=== PATIENT | male | born 1945 | race Caucasian/White ===

== ENCOUNTER 2018-07-13 18:30 | Inpatient (IN) | payer MEDICARE, OTHER ==
[~2018-07-13] VITALS: Ht 185.4 cm; Wt 99.0 kg
[~2018-07-13 18:30] MED LIST: ATOR10TA87 PO; CARV-50 PO; HCTZ25T PO; OMEP-84 PO; QUIN10TA PO
[2018-07-13 19:35] LABS: BASOPHILS % (AUTO) 0.2 % (0-1); EOSINOPHILS % (AUTO) 0 % (0-6); HEMATOCRIT 46.1 % (42.0-52.0); HEMOGLOBIN 15.4 g/dl (14.0-17.9); LYMPHOCYTES # (AUTO) 0.8 X10'3 (1.1-4.8); LYMPHOCYTES % (AUTO) 5.5 % (21-51); MEAN CORPUSCULAR HEMOGLOBIN 31.1 PG (27.0-31.0); MEAN CORPUSCULAR HGB CONC 33.3 % (33.0-36.5); MEAN CORPUSCULAR VOLUME 93.4 FL (78-98); MEAN PLATELET VOLUME 7.2 FL (7.4-10.4); MONOCYTES # (AUTO) 0.4 X10'3 (0-0.9); MONOCYTES % (AUTO) 2.5 % (2-12); NEUTROPHILS # (AUTO) 13.2 X10'3 (1.8-7.7); NEUTROPHILS % (AUTO) 91.8 % (42-75); PLATELET COUNT 164 X10'3 (140-440); RED BLOOD COUNT 4.94 X10'6 (4.70-6.10); RED CELL DISTRIBUTION WIDTH 13.9 % (11.5-14.5); WHITE BLOOD COUNT 14.3 X10'3 (4.5-11.0)
[2018-07-13 19:50] LABS: ALANINE AMINOTRANSFERASE 31 U/L (12-78); ALBUMIN 4.2 G/DL (3.4-5.0); ALBUMIN/GLOBULIN RATIO 1.2 (1.1-1.5); ALKALINE PHOSPHATASE 98 IU/L (46-116); ANION GAP 14 (8-16); ASPARTATE AMINO TRANSFERASE 20 U/L (10-37); BILIRUBIN,TOTAL 3.3 MG/DL (0.1-1.0); BLOOD UREA NITROGEN 13 MG/DL (7-18); BUN/CREATININE RATIO 10.3 (5.4-32.0); CALCIUM 8.9 MG/DL (8.5-10.1); CHLORIDE 99 MMOL/L (99-107); CREATININE 1.26 MG/DL (0.60-1.10); GLUCOSE 121 MG/DL (70-104); POTASSIUM 3.5 MMOL/L (3.5-5.1); SODIUM 136 MMOL/L (135-145); TOTAL PROTEIN 7.6 G/DL (6.4-8.2); eGFR 57 ML/MIN
[2018-07-13 20:14] LABS: CLARITY,URINE CLEAR (Clear); GLUCOSE, URINE NEGATIVE (Neg); KETONES,URINE TRACE mg/dl (Neg); LEUKOCYTE ESTERASE ,URINE NEGATIVE (Neg); NITRITES, URINE NEGATIVE (Neg); OCCULT BLOOD,URINE NEGATIVE (Neg); PROTEIN,URINE TRACE mg/dl (Neg)
[2018-07-13 20:22] LABS: COLOR,URINE DARK YELLOW (Yellow); UA COLLECTION TYPE CLN CATCH MIDSTREAM
[2018-07-13 20:31] LABS: BACTERIA,URINE FEW /HPF (Neg); RBC,URINE NONE SEEN /HPF (0-2); SQUAMOUS EPITHELIAL CELL,UR FEW /LPF (FEW); TRANSITIONAL EPI CELLS,URINE FEW /HPF; WBC,URINE 0-4 /HPF (0-4)
[2018-07-13 20:32] LABS: MUCUS STRANDS MODERATE /LPF (Neg)
[2018-07-13] MEDS ORDERED: ondansetron/PF 4mg/2ml inj IV ONE (20:35)
[2018-07-13] MEDS ORDERED: normal saline 1000ML IV soln IVB ONE ×2 (20:40)
[2018-07-13 20:55] LABS: LIPASE 168 U/L (73-393)
[2018-07-13] MEDS ORDERED: temazepam 15mg capsule PO PRN (21:00)
[2018-07-13] MEDS ORDERED: iohexol 300mg/ml 100ml inj. ONE (21:52)
[2018-07-13] MEDS ORDERED: HYDR12.5 PO (22:32)
[2018-07-13] MEDS ORDERED: ALLO100T PO (22:35)
[2018-07-13] MEDS ORDERED: LACT1CAP65 PO (22:40)
[2018-07-13] MEDS ORDERED: FISH OIL PO (22:40)
[2018-07-13] MEDS ORDERED: DOXY25TA19 PO (22:48)
[2018-07-13] MEDS ORDERED: DICY10CA88 PO (22:53)
--- NOTE | 2018-07-13 23:18 | NUR ---
PT CONTINUES TO VOMIT, AIRWAY IS CLEAR, PT ABLE TO CLEAR SECRETIONS ON HIS OWN. DISCUSSED POTENTIAL NEED FOR NG TUBE PT DOESN'T THINK HE WILL NEED ONE DUE TO BEING ABLE TO VOMIT WITHOUT COMPLICATION.
[2018-07-13] MEDS ORDERED: dextrose 5%-1/2 normal saline 1,000 ML IV SCH (23:46)
[2018-07-13] MEDS ORDERED: magnesium hydroxide 30ml (MOM) UD suspension PO PRN (23:50)
[2018-07-13] MEDS ORDERED: HYDROmorphone 1 mg/ml syringe IV PRN (23:50)
[2018-07-13] MEDS ORDERED: bisacodyl 10mg suppository rectal RC PRN (23:50)
[2018-07-13] MEDS ORDERED: hydrALAZINE 20mg/ml inj. IV PRN (23:50)
[2018-07-13] MEDS ORDERED: acetaminophen 325mg tablet PO PRN ×2 (23:50)
[2018-07-13] MEDS ORDERED: morphine 4 MG/ML inj SYRINge IV PRN (23:50)
[2018-07-13] MEDS ORDERED: HYDROcodone/acetaminophen 10/325mg tab PO PRN (23:50)
[2018-07-13] MEDS ORDERED: metoclopramide 5 mg/ml inj IV PRN (23:50)
[2018-07-13] MEDS ORDERED: diphenhydrAMINE 25mg capsule PO PRN (23:50)
[2018-07-13] MEDS ORDERED: diphenhydrAMINE 50 mg/ml inj IV PRN (23:50)
[2018-07-13] MEDS ORDERED: acetaminophen 650mg rectal suppository RC PRN (23:50)
[2018-07-13] MEDS ORDERED: mag hydrox/Alum hydrox/simeth 30ml oral suspension PO PRN (23:50)
[2018-07-13] MEDS ORDERED: ondansetron/PF 4mg/2ml inj IV PRN (23:50)
[2018-07-13] MEDS ORDERED: sodium polystyrene sulfonate ENEMA 30gm/120ml RC ONE (23:55)
[2018-07-13] MEDS ORDERED: mineral oil 133ml enema RC PRN (23:55)
[2018-07-14 00:40] LABS: MAGNESIUM 1.3 MG/DL (1.5-2.4); PHOSPHORUS 2.8 MG/DL (2.3-4.5)
[2018-07-14 01:15] VITALS: BP 149/86
[2018-07-14] MEDS: normal saline 1000ml 1,000 ML IV SCH ×3 (01:15→19:46)
--- NOTE | 2018-07-14 01:30 | NUR ---
PT ARRIVED ON UNIT VIA GURNEY. PATIENT AMBULATED TO BED. NG TUBE IN PLACE. FLUIDS RUNNING. VITALS STABLE. CLOTHES AT BEDSIDE. NO PERSONAL BELONGINGS. ON TELE.
[2018-07-14] MEDS ORDERED: magnesium Cl slow-release 64mg tablet PO PRN (03:40)
[2018-07-14] MEDS ORDERED: magnesium 4gm in 100ml NS 100 ML IV PRN (03:40)
[2018-07-14 06:00] VITALS: BP 135/75
--- NOTE | 2018-07-14 06:00 | NUR ---
Patient in room [facility]TH[facility] 4024. I have received report from ABDIAZIZ Malik and had the opportunity to ask questions and assume patient care.
--- NOTE | 2018-07-14 06:31 | NUR ---
PATIENT REPORT GIVEN TO CAYDEN FREED.
[2018-07-14 07:02] LABS: BASOPHILS % (AUTO) 0 % (0-1); EOSINOPHILS # (AUTO) 0.2 X10'3 (0-0.9); EOSINOPHILS % (AUTO) 1.3 % (0-6); HEMATOCRIT 42.9 % (42.0-52.0); HEMOGLOBIN 14.4 g/dl (14.0-17.9); LYMPHOCYTES # (AUTO) 0.7 X10'3 (1.1-4.8); LYMPHOCYTES % (AUTO) 5.6 % (21-51); MEAN CORPUSCULAR HGB CONC 33.5 % (33.0-36.5); MEAN CORPUSCULAR VOLUME 92.5 FL (78-98); MEAN PLATELET VOLUME 7.6 FL (7.4-10.4); MONOCYTES # (AUTO) 0.7 X10'3 (0-0.9); MONOCYTES % (AUTO) 5.6 % (2-12); NEUTROPHILS # (AUTO) 10.6 X10'3 (1.8-7.7); NEUTROPHILS % (AUTO) 87.5 % (42-75); PLATELET COUNT 140 X10'3 (140-440); RED BLOOD COUNT 4.64 X10'6 (4.70-6.10); RED CELL DISTRIBUTION WIDTH 14.1 % (11.5-14.5); WHITE BLOOD COUNT 12.1 X10'3 (4.5-11.0)
[2018-07-14 07:18] LABS: ALANINE AMINOTRANSFERASE 23 U/L (12-78); ALBUMIN 3.5 G/DL (3.4-5.0); ALBUMIN/GLOBULIN RATIO 1.1 (1.1-1.5); ALKALINE PHOSPHATASE 73 IU/L (46-116); ANION GAP 12 (8-16); ASPARTATE AMINO TRANSFERASE 20 U/L (10-37); BILIRUBIN,TOTAL 3.7 MG/DL (0.1-1.0); BLOOD UREA NITROGEN 16 MG/DL (7-18); BUN/CREATININE RATIO 13.4 (5.4-32.0); CALCIUM 8.2 MG/DL (8.5-10.1); CHLORIDE 103 MMOL/L (99-107); CREATININE 1.19 MG/DL (0.60-1.10); GLUCOSE 117 MG/DL (70-104); POTASSIUM 3.6 MMOL/L (3.5-5.1); SODIUM 139 MMOL/L (135-145); TOTAL CARBON DIOXIDE 23.6 MMOL/L (24-32); TOTAL PROTEIN 6.6 G/DL (6.4-8.2); eGFR 60 ML/MIN
[2018-07-14] MEDS: docusate sod 100mg capsule PO SCH ×2 (08:00→20:00)
[2018-07-14] MEDS: heparin, porcine 5000 units/ml vial SQ SCH ×2 (08:00→19:29)
[2018-07-14] MEDS: piperacillin/tazo 3.375gm/50ml 50 ML IV SCH ×2 (08:12→16:21)
[2018-07-14] MEDS: pantoprazole 40 MG vial IV SCH ×2 (08:12→21:01)
[2018-07-14] MEDS: carvedilol 6.25mg tablet PO SCH ×2 (08:16→21:02)
[2018-07-14] MEDS: allopurinol 300 MG tablet PO SCH (08:16)
[2018-07-14] MEDS: atorvastatin 10mg tablet PO SCH (08:16)
[2018-07-14] MEDS: lisinopril 20mg tablet PO SCH (08:17)
[2018-07-14] MEDS: diatr meglu/diatrizoate 30ml oral sol.-(3 dose) bottle PO SCH ×3 (08:19→14:57)
[2018-07-14 10:00] VITALS: BP 142/62
[2018-07-14 18:00] VITALS: BP 159/78
--- NOTE | 2018-07-14 18:30 | NUR ---
Problems reprioritized. Patient report given, questions answered & plan of care reviewed with ABDIAZIZ Null.
--- NOTE | 2018-07-14 18:45 | NUR ---
advanced ng tube 4 cm b/c CTA of abd stated ng in tip of stomach. suction produced clear green stomach contents. patient requested to ambulate. walked at least 3 times around halls. states stomach almost back to normal.
--- NOTE | 2018-07-14 20:39 | NUR ---
removed NG tube per MD order. pt working on CL tray. encouraged to start slowly
[2018-07-14] MEDS ORDERED: DOXYLAMINE SUCCINATE 50 MG PO SCH (21:00)
[2018-07-14] MEDS: lactobacillus rhamnosus 10,000 MMU CELLS/CAPSULE PO SCH (21:02)
[2018-07-14 22:00] VITALS: BP 115/63
[2018-07-15] MEDS: normal saline 1000ml 1,000 ML IV SCH ×2 (00:40→07:53)
[2018-07-15] MEDS: piperacillin/tazo 3.375gm/50ml 50 ML IV SCH ×2 (00:40→07:52)
[2018-07-15 06:00] VITALS: BP 128/83
--- NOTE | 2018-07-15 06:31 | NUR ---
Report given to Carrie FREED.
[2018-07-15 06:59] LABS: BASOPHILS % (AUTO) 0.2 % (0-1); EOSINOPHILS % (AUTO) 0 % (0-6); HEMATOCRIT 39.2 % (42.0-52.0); HEMOGLOBIN 13.4 g/dl (14.0-17.9); LYMPHOCYTES # (AUTO) 1.1 X10'3 (1.1-4.8); LYMPHOCYTES % (AUTO) 14.6 % (21-51); MEAN CORPUSCULAR HEMOGLOBIN 31.5 PG (27.0-31.0); MEAN CORPUSCULAR HGB CONC 34.2 % (33.0-36.5); MEAN PLATELET VOLUME 7.4 FL (7.4-10.4); MONOCYTES # (AUTO) 0.4 X10'3 (0-0.9); MONOCYTES % (AUTO) 5.9 % (2-12); NEUTROPHILS # (AUTO) 5.7 X10'3 (1.8-7.7); NEUTROPHILS % (AUTO) 79.3 % (42-75); PLATELET COUNT 123 X10'3 (140-440); RED BLOOD COUNT 4.26 X10'6 (4.70-6.10); RED CELL DISTRIBUTION WIDTH 14.1 % (11.5-14.5); WHITE BLOOD COUNT 7.2 X10'3 (4.5-11.0)
[2018-07-15 07:26] LABS: ALANINE AMINOTRANSFERASE 25 U/L (12-78); ALBUMIN 3.3 G/DL (3.4-5.0); ALBUMIN/GLOBULIN RATIO 1.2 (1.1-1.5); ALKALINE PHOSPHATASE 65 IU/L (46-116); ANION GAP 14 (8-16); ASPARTATE AMINO TRANSFERASE 20 U/L (10-37); BILIRUBIN,TOTAL 3.9 MG/DL (0.1-1.0); BLOOD UREA NITROGEN 19 MG/DL (7-18); BUN/CREATININE RATIO 12.9 (5.4-32.0); CALCIUM 7.9 MG/DL (8.5-10.1); CHLORIDE 104 MMOL/L (99-107); CREATININE 1.47 MG/DL (0.60-1.10); GLUCOSE 92 MG/DL (70-104); MAGNESIUM 1.5 MG/DL (1.5-2.4); SODIUM 141 MMOL/L (135-145); TOTAL CARBON DIOXIDE 22.7 MMOL/L (24-32); TOTAL PROTEIN 6.1 G/DL (6.4-8.2); eGFR 47 ML/MIN
[2018-07-15] MEDS: carvedilol 6.25mg tablet PO SCH (07:50)
[2018-07-15] MEDS: lisinopril 20mg tablet PO SCH (07:50)
[2018-07-15] MEDS: pantoprazole 40 MG vial IV SCH (07:52)
[2018-07-15] MEDS: docusate sod 100mg capsule PO SCH (07:52)
[2018-07-15] MEDS: heparin, porcine 5000 units/ml vial SQ SCH (07:53)
[2018-07-15] MEDS: allopurinol 300 MG tablet PO SCH (07:53)
[2018-07-15] MEDS: lactobacillus rhamnosus 10,000 MMU CELLS/CAPSULE PO SCH (07:53)
[2018-07-15] MEDS: atorvastatin 10mg tablet PO SCH (07:53)
--- NOTE | 2018-07-15 08:08 | NUR ---
Paged Dr. Mcfarlane: [id number] Chivo Bacon. Critical lab= potassium 3.0. No protocol ordered for K replacement. [place] [id number]
[2018-07-15] MEDS ORDERED: potassium Cl 40MEQ/NS 500ml 500 ML IV PRN ×2 (08:10)
[2018-07-15] MEDS ORDERED: potassium Cl 20 mEq SR tablet PO PRN ×2 (08:10)
[2018-07-15 09:30] VITALS: BP 118/63
--- NOTE | 2018-07-15 12:53 | NUR ---
PATIENT STABLE FOR DISCHARGE HOME WITH TODAY. ALL DISCHARGE INSTRUCTIONS GIVEN TO PATIENT AND , ALL QUESTIONS ANSWERED. PATIENT LEFT THE FLOOR AT 0940
== END 2018-07-15 10:15 | disposition home or self-care (01) | DRG 683 ==
LOC: ER 18:31 → ORTHO 4S 23:46 → CMPBEDREQ 07-14 03:08
PROVIDERS: ADMIT Family Medicine; ATTEND Family Medicine
PROC: BW211ZZ Computerized Tomography (CT Scan) of Abdomen and Pelvis using Low Osmolar Contrast (ICD-10-PCS; principal; 2018-07-13)
PROC: 0D9670Z Drainage of Stomach with Drainage Device, Via Natural or Artificial Opening (ICD-10-PCS; 2018-07-14)
DX: N17.9 Acute kidney failure, unspecified (principal); K56.690 Other partial intestinal obstruction; K52.9 Noninfective gastroenteritis and colitis, unspecified; K80.50 Calculus of bile duct without cholangitis or cholecystitis without obstruction; D64.9 Anemia, unspecified; E78.00 Pure hypercholesterolemia, unspecified; E83.42 Hypomagnesemia; E86.0 Dehydration; E87.6 Hypokalemia; I12.9 Hypertensive chronic kidney disease with stage 1 through stage 4 chronic kidney disease, or unspecified chronic kidney disease; K21.9 Gastro-esophageal reflux disease without esophagitis; M10.9 Gout, unspecified; T50.995A Adverse effect of other drugs, medicaments and biological substances, initial encounter; N18.9 Chronic kidney disease, unspecified; Z90.49 Acquired absence of other specified parts of digestive tract; Z79.899 Other long term (current) drug therapy; Z87.891 Personal history of nicotine dependence; Y92.89 Other specified places as the place of occurrence of the external cause
CPT/HCPCS: 36415; 74018; 74176; 74177; 80053; 81001; 83690; 83735; 83880; 84100; 84443; 84484; 85025; 87070; 96361; 96374; 99285; C9113; G0378; J1644; J2405; J2543; J7030; Q9963; Q9967

== ENCOUNTER 2024-04-19 10:58 | Day surgery (SDC) | payer MEDICARE, OTHER ==
[2024-04-19] VITALS (8 sets, daily range): BP systolic 135–173; BP diastolic 84–97; PULSE 62–71; RESP 14–16; TEMP 98–98.2; O2SAT 96–98
[~2024-04-19] VITALS: Ht 185.4 cm; Wt 96.6 kg
[~2024-04-19 10:58] MED LIST changes: +ALLO100T PO; +DOXY25TA19 PO; +FISH OIL PO; -HCTZ25T PO; +HYDR12.5 PO; +LACT1CAP65 PO
[2024-04-19] MEDS ORDERED: APIX5TAB3 PO (11:18)
[2024-04-19] MEDS ORDERED: FLEC50TA PO (11:18)
[2024-04-19] MEDS ORDERED: LOSA100T58 (11:18)
[2024-04-19] MEDS: MIDAZolam 1mg/ml 10ml vial IV ONE (13:44)
[2024-04-19] MEDS: normal saline 1000ml 1,000 ML IV SCH (13:44)
[2024-04-19] MEDS: fentaNYL/PF 50MCG/1 ML 2ML syringe IV ONE (13:44)
== END 2024-04-19 14:30 | disposition home or self-care (01) ==
LOC: SSTAY O 10:58
PROVIDERS: ATTEND Internal Medicine Interventional Cardiology
DX: I48.91 Unspecified atrial fibrillation (principal); I49.1 Atrial premature depolarization; R94.31 Abnormal electrocardiogram [ECG] [EKG]; Z53.8 Procedure and treatment not carried out for other reasons; I10 Essential (primary) hypertension; E78.00 Pure hypercholesterolemia, unspecified; Z79.01 Long term (current) use of anticoagulants; Z79.899 Other long term (current) drug therapy; M10.9 Gout, unspecified; Z85.46 Personal history of malignant neoplasm of prostate
CPT/HCPCS: 93005; A4620; J2250; J3010; J7030; Z7610

== ENCOUNTER 2024-08-09 09:55 | Day surgery (SDC) | payer MEDICARE, OTHER ==
[~2024-08-09] VITALS: Ht 185.4 cm; Wt 96.3 kg
[2024-08-09] VITALS (11 sets, daily range): BP systolic 126–152; BP diastolic 90–100; PULSE 52–94; RESP 10–12; TEMP 97.6; O2SAT 98–100
[~2024-08-09 09:55] MED LIST changes: +APIX5TAB3 PO; -CARV-50 PO; -DOXY25TA19 PO; -FISH OIL PO; +FLEC50TA PO; -HYDR12.5 PO; -LACT1CAP65 PO; +LOSA100T58; -QUIN10TA PO
[2024-08-09] MEDS ORDERED: LOPE2TAB23 PO (10:19)
[2024-08-09] MEDS ORDERED: DOXY25TA58 PO (10:19)
[2024-08-09 11:13] LABS: ANION GAP 13 (8-16); BASOPHILS % (AUTO) 0.3 % (0-1); BLOOD UREA NITROGEN 12 MG/DL (7-18); BUN/CREATININE RATIO 10.8 (10.0-20.0); CALCIUM 8.3 MG/DL (8.5-10.1); CHLORIDE 103 MMOL/L (99-107); CREATININE 1.11 MG/DL (0.60-1.10); EOSINOPHILS % (AUTO) 0.4 % (0-6); GLUCOSE 88 MG/DL (70-104); HEMATOCRIT 43.2 % (42.0-52.0); HEMOGLOBIN 14.6 g/dl (14.0-17.9); LYMPHOCYTES % (AUTO) 18.2 % (21-51); MEAN CORPUSCULAR HEMOGLOBIN 31.4 PG (27.0-31.0); MEAN CORPUSCULAR HGB CONC 33.8 g/dL (33.0-36.5); MEAN PLATELET VOLUME 7.3 FL (7.4-10.4); MONOCYTES # (AUTO) 0.3 X10'3 (0-0.9); MONOCYTES % (AUTO) 5.7 % (2-12); NEUTROPHILS # (AUTO) 4.4 X10'3 (1.8-7.7); NEUTROPHILS % (AUTO) 75.4 % (42-75); PLATELET COUNT 166 X10'3 (140-440); POTASSIUM 3.2 MMOL/L (3.5-5.1); RED BLOOD COUNT 4.65 X10'6 (4.70-6.10); RED CELL DISTRIBUTION WIDTH 15.7 % (11.5-14.5); SODIUM 140 MMOL/L (135-145); WHITE BLOOD COUNT 5.8 X10'3 (4.5-11.0); eCRCL 64 ML/MIN; eGFR 64 ML/MIN
[2024-08-09 11:18] LABS: APTT 28 SECONDS (22-32); INR 1.1 INR
[2024-08-09 11:21] LABS: PROTHROMBIN TIME 11.7 SECONDS (9.0-12.0)
[2024-08-09] MEDS: potassium Cl 20 mEq SR tablet PO STA (11:28)
[2024-08-09] MEDS: normal saline 1000ml 1,000 ML IV SCH (11:28)
[2024-08-09] MEDS: MIDAZolam 1mg/ml 10ml vial IV ONE (12:10)
[2024-08-09] MEDS: fentaNYL/PF 50MCG/1 ML 2ML syringe IV ONE (12:11)
== END 2024-08-09 13:30 | disposition home or self-care (01) ==
LOC: SSTAY O 09:55
PROVIDERS: ATTEND Student in an Organized Health Care Education/Training Program
DX: I48.91 Unspecified atrial fibrillation (principal); I10 Essential (primary) hypertension; M10.9 Gout, unspecified; Z85.46 Personal history of malignant neoplasm of prostate; Z79.899 Other long term (current) drug therapy
CPT/HCPCS: 36415; 80048; 85025; 85610; 85730; 92960; 93005; J2250; J3010; J7030

== ENCOUNTER 2025-01-27 09:48 | Day surgery (SDC) | payer MEDICARE, OTHER ==
[~2025-01-27] VITALS: Ht 185.4 cm; Wt 92.2 kg
[~2025-01-27 09:48] MED LIST changes: +DOXY25TA58 PO; +LOPE2TAB23 PO
[2025-01-27] MEDS ORDERED: fentaNYL/PF 50MCG/1 ML 2ML syringe IV ONE (10:15)
[2025-01-27] MEDS ORDERED: normal saline 1000ml 1,000 ML IV SCH (10:15)
[2025-01-27] MEDS ORDERED: MIDAZolam 1mg/ml 10ml vial IV ONE (10:15)
[2025-01-27] MEDS ORDERED: CARV6.253 PO (10:20)
[2025-01-27 10:30] VITALS: BP 139/89; PULSE 61; RESP 16; TEMP 97.9; O2SAT 98
[2025-01-27 11:05] LABS: CREATININE 1.25 MG/DL (0.60-1.10); TOTAL CARBON DIOXIDE 23.8 MMOL/L (24-32); eCRCL 56 ML/MIN; eGFR 56 ML/MIN
[2025-01-27 11:08] LABS: MEAN PLATELET VOLUME 7.6 FL (7.4-10.4); RED CELL DISTRIBUTION WIDTH 15.6 % (11.5-14.5)
[2025-01-27 11:10] LABS: APTT 29 SECONDS (22-32); INR 1.2 INR
[2025-01-27] MEDS ORDERED: atropine 0.1mg/ml 10ml syringe ONE (12:10)
[2025-01-27] MEDS ORDERED: midazolam 1 mg/ML 2ml injection ONE (12:10)
[2025-01-27] MEDS ORDERED: amiodarone 50MG/ML inj IV ONE (12:10)
[2025-01-27] MEDS ORDERED: fentaNYL/PF 50MCG/1 ML 2ML syringe ONE (12:10)
[2025-01-27 12:45] VITALS: BP 137/83; PULSE 60; RESP 14; O2SAT 96
[2025-01-27 13:00] VITALS: BP 139/86; PULSE 58; RESP 14; O2SAT 96
--- NOTE | 2025-01-27 13:07 | ELECTROCARDIOGRAPH REPORT ---
[facility] Test Date: 2025-01-27 Test Time: 13:06:54 Pat Name: JENNIFER SERRANO Department: [facility] Patient ID: [facility]-[id number] Room: Gender: M Orthopedic Assistant: : 1945 Requested By: GERONIMO MENESES Order Number: [id number] Reading MD: Dr. STACEY Ocampo Measurements Intervals [place]en Rate: 61 P: -5 GA: 233 QRS: 40 QRSD: 97 T: 26 QT: 444 QTc: 448 Interpretive Statements Sinus rhythm Atrial premature complex Prolonged GA interval Electronically Signed On 01-28-2025 12:31:[address] STACEY Ocampo Please click the below link to view image of tracing.
[2025-01-27 13:10] VITALS: BP 137/84; PULSE 56; RESP 14; O2SAT 96
--- NOTE | 2025-02-14 10:09 | CARDIOLOGY REPORT ---
DATE OF SERVICE: 01/27/2025 DICTATING PHYSICIAN: Micki Mcgovern MD CARDI[facility]ERSION DATE OF STUDY: 01/27/2025. NAME OF STUDY: Electrical cardioversion. PROCEDURE: The patient was brought to cardiac short stay where she was prepped in the usual manner. After gradual increments of Versed and fentanyl, and conscious sedation was obtained, the patient was cardioverted. The patient remained clinically and hemodynamically stable throughout the procedure. IMPRESSION: Successful electrical cardioversion to normal sinus rhythm without complication. Micki Mcgovern MD TID: [id number] RECEIPT: [id number] YANIRA/MARY JANE/BOZENA
== END 2025-01-27 13:15 | disposition home or self-care (01) ==
LOC: SSTAY O 09:48
PROVIDERS: ATTEND Student in an Organized Health Care Education/Training Program
DX: I48.91 Unspecified atrial fibrillation (principal); I10 Essential (primary) hypertension; M10.9 Gout, unspecified; Z85.46 Personal history of malignant neoplasm of prostate
CPT/HCPCS: 36415; 80048; 85025; 85610; 85730; 92960; 93005; J2250; J3010; J7030; 99152; J0282; J0461